=== PATIENT | male | born 1970 | race Caucasian/White ===

== ENCOUNTER 2016-12-11 08:20 | Emergency (ER) | payer OTHER ==
[~2016-12-11] VITALS: Ht 182.9 cm; Wt 226.8 kg
[~2016-12-11 08:20] MED LIST: BACTRIM DS TAB1 EACH PO; GLUCOPHAGE XR500 MG PO; KEFLEX500 MG PO; LISINOPRIL40 MG PO; MOBIC15 MG PO; SERTRALINE HCL100 MG PO; TRAMADOL 50 MG50 MG PO
[2016-12-11] MEDS ORDERED: MOBIC7.5 MG PO (08:28)
[2016-12-11] MEDS ORDERED: METFORMIN HCL500 MG PO (08:28)
[2016-12-11] MEDS ORDERED: LISINOPRIL20 MG PO (08:28)
[2016-12-11] MEDS ORDERED: WELLBUTRIN XL300 MG PO (08:29)
[2016-12-11 09:37] VITALS: BP 139/76
== END 2016-12-11 09:38 | disposition home or self-care (01) ==
LOC: ER 08:20
DX: H02.825 Cysts of left lower eyelid (principal); I10 Essential (primary) hypertension; F32.9 Major depressive disorder, single episode, unspecified; M19.90 Unspecified osteoarthritis, unspecified site; G47.30 Sleep apnea, unspecified